=== PATIENT | male | born 1950 | race Caucasian/White ===

== ENCOUNTER → 2019-05-12 | Outpatient (CLI) | payer OTHER, MEDICARE ==
[~2019-05-12] VITALS: Ht 167.6 cm; Wt 58.8 kg
[~2019-05-12] MED LIST: AMITRIPTYLINE H25 M3 PO; B-125000 MC1 PO; CLONAZEPAM 0.50.5 M1 PO; IBUPROFEN 600600 M1 PO; ISOSORBIDE MONO30 M1 PO; LISINOPRIL2.5 MG PO; NABUMETONE 500500 M1 PO; TRAMADOL 50 MG50 MG PO; UNICOMPLEX M TA1 TA1 PO; VITAMIN D325 MC1 PO; [UNRECOGNIZED DRUG - OTHER] PO
[2019-05-12 14:29] VITALS: BP 127/99
--- NOTE | 2019-05-12 14:51 | NUR ---
Pain Clinic Assessment: 1. History of Osteoarthritis: CERVICAL History of Rheumatoid Arthritis: 2. Height: 5 ft. 6 in. 167.6 cm. Weight: 129.6 lb. oz. 58.786 kg. Patient's BMI: 20.9 3. Vital Signs: BP: 127/99 Pulse: 108 Resp: 20 Temp: 02 Sat: 95 ECG Mon: 4. Pain Intensity: 7-8 5. Fall Risk: Dizziness: N Needs help standing or walking: N Fallen in the last 3 months: N Fall risk comments: 6. Patient on Blood Thinner: None 7. History of Hypertension: Y 8. Opioid Therapy greater than 6 weeks: N Opiate Contract Signed: 9. Risk Assessment Tool Provided: 8-HIGH RISK 10. Functional Assessment Tool: 11. Recreational Drug Use: Never Drug Type: Tobacco Use: Current Every Day Smoker Tobacco Type: Cigarettes Amount or Packs/day: 1/DAY How Many Years: 50 Alcohol Use: Yes Frequency: Daily Quant: 1 DRINK
--- NOTE | 2019-05-26 07:45 | HPC ---
[facility] [place] [address] PAIN MANAGEMENT CONSULTATION Name: LUZ BURGER Room #: REG ASTON Marisa#: [id number] Admission: 05/12/19 Attend Phys: Sergo Blanca DO Discharge: Date of : 46 Report #: [id number] THIS REPORT FOR: cc: Iron Rehman MD, Austin T. MD Johnson, James E. DO ~ THIS REPORT FOR: //name// DATE OF SERVICE: 05/12/2019 CHIEF COMPLAINT: Neck pain, bilateral shoulder pain, and chronic low back pain. HISTORY OF PRESENT ILLNESS: As you know, the patient is a 69-year-old male who reports longstanding history of neck pain, bilateral upper extremity pain and low back pain. The patient was referred to our clinic by his neurosurgeon, Dr. Alexis Mulligan for evaluation to discuss options for treatment for suspected cervical radiculopathy and facet arthropathy of the cervical spine. The patient states that at present he was advised he is not a surgical candidate. The patient indicates his pain began 01/2019. He denies any specific injury or trauma. He has sought evaluation with conservative treatment initially utilizing [id number] medications, rest, relaxation, and light stretching exercise activities. Due to lack of improvement, he was ultimately referred to Neurosurgery, who reviewed the patient's case and advised the patient at present, he was not a candidate for surgery and that more conservative options would be recommended. The patient indicates today his pain is steady, describes the pain as sharp. He places current pain score 7-8/10, daily average is 7-8/10, and worst pain has been is 8-9/10. The patient states his pain is improved with "keeping his neck in one position while sleeping." He states the pain is improved with getting up and moving as well as supporting his neck with pillows. He has been referred to our service to discuss treatment options for chronic cervicalgia. PAST MEDICAL HISTORY: 1. Rheumatic fever. 2. Hypertension. 3. Chronic lung disease. 4. Heart disease. 5. Chronic colon problems. 6. Degenerative joint disease. 7. Osteoarthritis. 8. Benign prostatic hypertrophy. 9. Migraine headaches. [facility] [address] [place] [address] PAIN MANAGEMENT CONSULTATION Name: LUZ BURGER Room #: REG [facility].#: [id number] Admission: 05/12/19 Attend Phys: Sergo Blanca DO Discharge: Date of : 46 Report #: [id number] 10. Depression. 11. Anxiety disorder. 12. History of cataracts. 13. Colon cancer. PAST SURGICAL HISTORY: 1. Vasectomy, C5-C6 anterior disk cervical fusion. 2. Septoplasty. 3. Cataract surgery. 4. Prostate surgery. 5. Lens replacement. SOCIAL HISTORY: The patient continues to smoke 1 pack tobacco per day and he has done this for greater than 50 years. Denies IV or illicit drug use. Admits to 1 alcohol beverage per day. He is not employed. He is not working. He is not receiving workmen's compensation nor is he trying to obtain disability benefits. He is not in litigation in regards to pain. He is unaccompanied at today's visit. REVIEW OF SYSTEMS: Positive for fatigue and weakness, frequent and recurrent headaches, wearing corrective eyewear, cataracts, hearing loss with tinnitus, chronic sinus problems with rhinitis, shortness of breath walking or lying flat, heart trouble, chest pain with walking or lying flat, frequent and recurrent coughs, asthma, wheezing, COPD, constipation, abdominal pain, frequent urination, nocturia, incontinence, dribbling to urine, change of force or stream urination, rash and itching, changes in hair and nail texture, lightheadedness and dizziness, numbness and tingling sensations, tremors, memory loss with confusion, nervousness and depression, excessive thirst, urination, heat and cold intolerance, bleeding and bruising tendencies. All other review of systems negative per 12-point review of systems other than those listed in history of present illness. Pain impact score is rated at 41/70, moderate interference of daily activities secondary to pain. ALLERGIES: No known drug allergies. CURRENT MEDICATIONS: Ibuprofen 600 mg once a day, cholecalciferol 25 mcg once a day, L-arginine 50 mg once a day, cyanocobalamin 5000 mcg per day, multivitamin 1 tab per day, tramadol 50 mg every 8 hours p.r.n. for pain, amitriptyline 25 mg p.o. at bedtime, clonazepam 0.5 mg once a day, lisinopril 2.5 mg once a day, and isosorbide dinitrate 30 mg once a day. IMAGING: No imaging of the cervical spine. PQRS: The patient has known arthritic changes of the cervical spine, lumbar spine. No rheumatoid arthritis. He is placing current pain score 7-8/10. He is not a fall risk, has not had a fall in last 3 months. He is not on blood [facility] [address] [place] [address] PAIN MANAGEMENT CONSULTATION Name: LUZ BURGER Room #: REG Daphney Milner#: [id number] Admission: 05/12/19 Attend Phys: Sergo Blanca DO Discharge: Date of : 46 Report #: [id number] thinners, but is treated for hypertension. He is not on chronic opioids and has an extremely high risk of opioid addiction. Pain impact score 41/70, moderate interference of daily activities secondary to pain. PHYSICAL EXAMINATION: VITAL SIGNS: Blood pressure 127/99, pulse is 108, respiratory rate 20 and unlabored. The patient is 95% on room air. Height 5 feet 6 inches tall, weight 129.6 pounds, BMI calculated 20.9. GENERAL: Well-developed, well-nourished 69-year-old male, smell strongly of tobacco smoke, appears much older than stated age, placing current pain score 7-8/10. HEENT: Normocephalic, atraumatic. Pupils equal, round, reactive to light. Extraocular muscles are intact. Sclerae nonicteric without injection. NEUROLOGIC: Cranial nerves 2-12 grossly intact. Speech fluent. The patient deemed a fair historian. LUNGS: Decreased breath sounds bilaterally. There is prolonged expiratory phase and expiratory wheezing noted. CARDIOVASCULAR: Tachycardic. No appreciable gallop, no rub. ABDOMEN: Soft, nontender, nondistended, normal active bowel sounds. EXTREMITIES: Show mild clubbing, no cyanosis, and no edema. MUSCULOSKELETAL: Upper extremity strength appears symmetrical 5/5, intact to light touch from C5-T1 dermatomes. Spurling's test is negative. Cervical provocation testing is met with increased pain consistent with cervical facet arthropathy. There is restriction of motion with lateral flexion and rotation both left and right with pain generated. ASSESSMENT: 1. Chronic cervicalgia. 2. Cervical spondylosis without kristian radicular symptoms. 3. Chronic neck pain. PLAN: The patient has been referred to our service by his neurosurgeon to discuss options for treatment for chronic cervicalgia. With today's evaluation, it does appear the patient is suffering from cervical facet arthropathy pain. Treatment options for cervical facet arthropathy are as follows: 1. We discussed physical therapy, stretching exercises and traction techniques as the gold standard of treatment for cervicalgia secondary to facet arthropathy pain. The patient would be recommended to initiate this quickly and continue the traction techniques as a course of treatment. We discussed starting a consistent nonsteroidal anti-inflammatory to improve overall pain, allowing the patient to gain some analgesic benefit from anti-inflammatory medications. We also discussed the possibility of having the patient undergo intra-articular facet injections, medial branch nerve blocks and radiofrequency lesioning of the cervical nerves, which are not performed at the clinic. He is at today, but referrals to another physician, who does perform these procedures, could be made. Ultimately, surgical fusion. The patient after reviewing [email or web address]] and [address] [address] PAIN MANAGEMENT CONSULTATION Name: LUZ BURGER ASHLEY Room #: REG ASTON Cunningham#: [id number] Admission: 05/12/19 Attend Phys: Sergo Blanca DO Discharge: Date of : 46 Report #: [id number] benefits chose to begin with medication management. 2. The patient will be started on nabumetone 500 mg dose. He will take 1 tab p.o. t.i.d. with meals. I have given the patient #90 tablets, advised the patient to take the medication as directed, and watch for side effects of dyspepsia, worsening of blood pressure, lower extremity edema with its use. If he notes any side effects, discontinue immediately, call for further instructions. Prescriptions were provided to the patient in digital form, sent to his local pharmacy. To continue this medication, he can follow up with his PCP for continued therapy or follow up with us to discuss other options for treatment. 3. We had originally been requested to see the patient for cervical epidural injection. We could certainly look towards this option of treatment if deemed necessary, but at this time, the patient wishes to remain conservative, utilizing medication management. We will continue the medications to determine efficacy. If they are not effective, the injections could be recommended. 4. We wish to thank Dr. Mulligan for the referral of the patient to our clinic. We will keep you apprised of his response to treatment as we address chronic cervicalgia secondary to facet arthropathy of the cervical spine. Again, we wish to thank you for the opportunity to see this patient in consultation. <ELECTRONICALLY SIGNED> By: Sergo Blanca DO 05/26/19 0745 [id number] Sergo Blanca DO /nt
== END ==
LOC: PAIN 05-05 06:38
DX: M47.812 Spondylosis without myelopathy or radiculopathy, cervical region (principal); M25.511 Pain in right shoulder; M25.512 Pain in left shoulder; M54.5 Low back pain; G89.29 Other chronic pain; I10 Essential (primary) hypertension; M19.90 Unspecified osteoarthritis, unspecified site; N40.0 Benign prostatic hyperplasia without lower urinary tract symptoms; F17.210 Nicotine dependence, cigarettes, uncomplicated; Z85.038 Personal history of other malignant neoplasm of large intestine; Z79.899 Other long term (current) drug therapy

== ENCOUNTER → 2019-05-19 | Outpatient (CLI) | payer OTHER, MEDICARE ==
[~2019-05-19] VITALS: Ht 167.6 cm; Wt 58.5 kg
[2019-05-19 12:47] VITALS: BP 156/92
--- NOTE | 2019-05-19 12:56 | NUR ---
Pain Clinic Assessment: 1. History of Osteoarthritis: CERVICAL History of Rheumatoid Arthritis: Not Applicable 2. Height: 5 ft. 6 in. 167.6 cm. Weight: 129.0 lb. oz. 58.514 kg. Patient's BMI: 20.8 3. Vital Signs: BP: 156/92 Pulse: 100 Resp: 14 Temp: 02 Sat: 96 ECG Mon: 4. Pain Intensity: 4 5. Fall Risk: Dizziness: N Needs help standing or walking: N Fallen in the last 3 months: N Fall risk comments: 6. Patient on Blood Thinner: None 7. History of Hypertension: Y 8. Opioid Therapy greater than 6 weeks: N Opiate Contract Signed: 9. Risk Assessment Tool Provided: 8-HIGH RISK 10. Functional Assessment Tool: / 11. Recreational Drug Use: Never Drug Type: Tobacco Use: Current Every Day Smoker Tobacco Type: Cigarettes Amount or Packs/day: 1 pack How Many Years: 50 Alcohol Use: Yes Frequency: Daily Quant: 1
--- NOTE | 2019-05-26 07:45 | HPC ---
[facility] [place] [address] PAIN MANAGEMENT CONSULTATION Name: LUZ BURGER Room #: REG [facility] ReaganSabrinaArabella.#: [id number] Admission: 05/19/19 Attend Phys: Sergo Blanca DO Discharge: Date of : 46 Report #: [id number] THIS REPORT FOR: cc: Iron Rehman MD, Austin T. MD Johnson, James E. DO ~ THIS REPORT FOR: //name// DATE OF SERVICE: 05/19/2019 CHIEF COMPLAINT: Neck pain, upper back pain, and bilateral hand pain. HISTORY OF PRESENT ILLNESS: As you know, the patient is a 69-year-old male referred to our clinic by his neurosurgeon, Dr. Alexis Mulligan to undergo a cervical epidural injection under fluoroscopic guidance to address suspected cervical radiculopathy. The patient also suffers from fairly significant facet arthropathy pain in the cervical spine. The patient was established today's appointment to undergo cervical epidural injection under fluoroscopic guidance. He returns today reporting a pain score of around 4/10. He states his pain is constant, sharp, dull, and tightness in sensation, exacerbated with looking down, looking up, and rotating his neck tends to improve with rest and relaxation. He has been referred to our clinic to trial injection therapy. ALLERGIES: No known drug allergies. CURRENT MEDICATIONS: See chart. SOCIAL HISTORY: Unchanged from our last visit. He smokes 1 pack a day and has done so for 50 years. Denies IV or illicit drug use. Admits to 1 alcohol beverage per day. He is unaccompanied at today's visit. IMAGING: No new imaging available. PQRS: The patient has known arthritic changes of the cervical spine, lumbar spine, bilateral hips, and knees. No rheumatoid arthritis. He is placing pain intensity today at 4/10, not a fall risk, has not had a fall in last 3 months. He is not on blood thinners, but is treated for hypertension. He is not on chronic opioids and has an extremely high risk of opioid addiction based on our assessment tool. Pain impact score 41/70, moderate interference of daily activities secondary to pain. PHYSICAL EXAMINATION: VITAL SIGNS: Blood pressure 156/92, pulse 100, respiratory rate 14 and unlabored. The patient is 96% on room air. Height 5 feet 6 inches tall, weight [facility] [address] [place] [address] PAIN MANAGEMENT CONSULTATION Name: LUZ BURGER Room #: REG [facility]..#: [id number] Admission: 05/19/19 Attend Phys: Sergo Blanca DO Discharge: Date of : 46 Report #: [id number] 129 pounds, BMI calculated 20.8. GENERAL: Well-developed, well-nourished, well-hydrated 69-year-old male appearing stated age, reporting pain score today at 4/10. HEENT: Normocephalic, atraumatic. Pupils are equal, round, reactive to light. EXTREMITIES: Show no clubbing, no cyanosis, and no edema. MUSCULOSKELETAL: Upper extremity strength appears symmetrical 5/5. Muscle bulk and tone equal and symmetrical in comparing left upper extremity to right. Spurling's test is equivocal. Cervical provocation testing is met with increasing neck pain. There is crepitus noted with movement. ASSESSMENT: 1. Cervical radiculopathy. 2. Cervical spondylosis with radiculopathy. 3. Cervical facet arthropathy. 4. Chronic neck pain. PLAN: 1. The patient has returned today in followup visit in preparation to undergo cervical epidural injection under fluoroscopic guidance. We saw the patient last week and he chose to undergo the procedure today as towards he had to do prior to being able to rest after the injection. He returns today with pain level reported at 4/10. He denies new injury, trauma that may have led to continuation of symptoms. He denies any changes in medication management that would preclude us from having the patient undergo the injection today. The patient has been advised the risks and benefits of the procedure. These risks include, but are not necessarily limited to bleeding, bruising, infection, worsening pain, no relief of pain, also risk of temporary or permanent muscle weakness, temporary or permanent nerve damage, possible paralysis and . The patient states he understood and wished to proceed. 2. No medication changes made at today's visit. 3. The patient will return to our clinic on an as needed basis for possible next in the series of cervical epidural injections. I did advise the patient to keep his neurosurgeon, Dr. Alexis Mulligan informed of the response to injections. We will see him back on an as needed basis. PROCEDURE NOTE: DESCRIPTION OF PROCEDURE: C7-T1 cervical epidural steroid injection under fluoroscopic guidance. This is the first procedure of the first series that the patient is undergoing. After obtaining written consent, the patient was taken back to the fluoroscopy suite and placed in a prone position with separate pillows on the chest employed to decrease the cervical lordosis. The skin overlying the cervical area was prepped and draped in an aseptic fashion. The C7-T1 vertebral interspace was [address] [address] PAIN MANAGEMENT CONSULTATION Name: LUZ BURGER Room #: REG CLDaphney Cunningham#: [id number] Admission: 05/19/19 Attend Phys: Sergo Blanca DO Discharge: Date of : 46 Report #: [id number] identified by AP fluoroscopy. The skin and subcutaneous tissue overlying the target site of injection was anesthetized using 3 mL of 1% lidocaine. A 20-gauge 3-1/2 inch Tuohy needle was advanced under fluoroscopic guidance toward the epidural space using a midline approach. The epidural space was identified using a loss of resistance to air technique. After negative aspiration for heme or cerebrospinal fluid, a total of 1 mL of Omnipaque was injected. A cervical epidurogram was confirmed using AP and oblique fluoroscopy. After negative aspiration for heme or cerebrospinal fluid, 5 mL of a solution containing 2 mL 40 mg per mL, 80 mg total triamcinolone along with 3 mL of lidocaine 1% was injected in increments. Contrast spread was noted from posterior epidural space. The needle was then retracted approximately custodial and the needle track was flushed with 1 mL of 1% lidocaine. There were no apparent new sensory deficits in the upper extremities present following the procedure. A sterile bandage was placed over the injection site. The heart rate, pulse oximetry and blood pressure were continuously monitored after the procedure. There were no apparent complications. The patient tolerated the procedure well and was carefully escorted in the recovery room in stable condition. After meeting discharge criteria, the patient was discharged home. <ELECTRONICALLY SIGNED> By: Sergo Blanca DO 05/26/19 0745 [id number] Sergo Blanca DO /jeannine
== END | disposition home or self-care (01) ==
LOC: PAIN 06:53
DX: M47.22 Other spondylosis with radiculopathy, cervical region (principal); G89.29 Other chronic pain; M54.2 Cervicalgia; M19.90 Unspecified osteoarthritis, unspecified site; I10 Essential (primary) hypertension; F17.210 Nicotine dependence, cigarettes, uncomplicated; Z98.890 Other specified postprocedural states; Z79.899 Other long term (current) drug therapy